=== PATIENT | male | born 1995 | race Two or more races ===

== ENCOUNTER 2021-07-01 16:16 | Emergency (ER) | payer OTHER ==
[2021-07-01 18:43] LABS: BASOPHIL 0.2 % (0-2); EOSINOPHIL 0.9 % (0-5); HCT 40.2 % (42.0-52.0); HGB 13.3 g/dl (13.2-18.0); LYMPHOCYTE 21.6 % (15-48); MCH 28.9 pg (25.0-31.0); MCHC 33.1 g/dL (32.0-36.0); MCV 87.2 fL (78.0-100.0); MONOCYTE 7.9 % (0-12); MPV 9.1 fL (6.0-9.5); NRBC 0; PLT 245 K/uL (150-400); RBC 4.61 M/uL (4.70-6.00); RDW 13.3 % (11.5-14.0); WBC 8.1 K/uL (4.0-10.5)
[2021-07-01 18:59] LABS: BUN/CREAT RATIO (CALC) 17.3 RATIO; CREATININE 0.98 mg/dL (0.67-1.17)
[2021-07-01 19:32] LABS: BILIRUBIN NEGATIVE (NEGATIVE); BLOOD NEGATIVE Ery/uL (NEGATIVE); CLARITY CLEAR (CLEAR); COLOR YELLOW (YELLOW); GLUCOSE (U) NORMAL (NORMAL); LEUKOCYTES NEGATIVE Leu/uL (NEGATIVE); NITRITE NEGATIVE (NEGATIVE); PROTEIN NEGATIVE (NEGATIVE); SPECIFIC GRAVITY 1.025 (1.001-1.030); UROBILINOGEN 0.2 mg/dL (0.2-1.0)
[2021-07-10 08:33] LABS: CHLAMYDIA TRACHOMATIS, NAA POSITIVE * (ABNORM)
[2021-07-10 08:36] LABS: NEISSERIA GONORRHOEAE, NAA NEGATIVE
== END 2021-07-01 20:28 | disposition home or self-care (01) ==
LOC: FER 16:16
PROVIDERS: Nurse Practitioner Family
DX: R31.9 Hematuria, unspecified (principal); Z53.29 Procedure and treatment not carried out because of patient's decision for other reasons; Z88.8 Allergy status to other drugs, medicaments and biological substances
CPT/HCPCS: 36415; 80048; 81003; 85025; 87491; 87591; 99283; J0696